=== PATIENT | female | born 1990 | race Caucasian/White ===

== ENCOUNTER 2016-10-31 18:08 | Emergency (ER) | payer MEDICARE, OTHER ==
[~2016-10-31] VITALS: Ht 160 cm; Wt 57.6 kg
[~2016-10-31 18:08] MED LIST: AMOX1TAB26; BIRTH CONTROL; CYCL10TA50; HYDR-3240; HYDR-3240 PO; MELO-190 PO; NORG1TAB29 PO; OFLO5DRO4 OT; OXYC-302 PO; TIZA4CAP PO
[2016-10-31 18:55] LABS: HEMATOCRIT 39.6 % (34.6-47.8); HEMOGLOBIN 13.2 g/dL (11.7-16.4); WHITE BLOOD COUNT 6.8 x10^3/uL (3.4-10)
[2016-10-31] MEDS ORDERED: MORPHINE SULFATE 4 MG/ML, 1ML ONE ×2 (18:55→20:02)
[2016-10-31] MEDS ORDERED: ONDANSETRON 2MG/ML, 2ML ONE (18:55)
[2016-10-31] MEDS ORDERED: DIAZEPAM 5 MG/ML, 2ML ONE (18:55)
[2016-10-31] MEDS: MORPHINE SULFATE 4 MG/ML, 1ML IVPush PRN ×2 (18:59→20:06)
[2016-10-31] MEDS ORDERED: SODIUM CHLORIDE FLUSH 10ML SYR IVF ONE (19:00)
[2016-10-31] MEDS ORDERED: ONDANSETRON 2MG/ML, 2ML IVPush ONE ×2 (19:00→20:00)
[2016-10-31] MEDS ORDERED: DIAZEPAM 5 MG/ML, 2ML IV ONE (19:00)
[2016-10-31 19:04] LABS: ASPARTATE AMINO TRANSFERASE 13 U/L (15-37); BLOOD UREA NITROGEN 5 mg/dL (7-18)
[2016-10-31] MEDS ORDERED: MORPHINE SULFATE 4 MG/ML, 1ML IVPush PRN (20:00)
[2016-10-31 21:47] VITALS: BP 116/66
== END 2016-10-31 21:51 | disposition home or self-care (01) ==
LOC: ED 19:12
DX: S16.1XXA Strain of muscle, fascia and tendon at neck level, initial encounter (principal); M47.892 Other spondylosis, cervical region; X58.XXXA Exposure to other specified factors, initial encounter; Y93.89 Activity, other specified; Y92.89 Other specified places as the place of occurrence of the external cause; Y99.9 Unspecified external cause status
CPT/HCPCS: 36415; 70450; 72125; 80053; 84703; 85025; 93005; 96374; 96375; 96376; 99285; J2405; J3360

== ENCOUNTER 2017-02-06 09:52 | Emergency (ER) | payer MEDICARE ==
[~2017-02-06] VITALS: Ht 162.6 cm; Wt 60.2 kg
[~2017-02-06 09:52] MED LIST changes: -MELO-190 PO; +MELO7.5T31 PO
[2017-02-06] MEDS ORDERED: METOCLOPRAMIDE 5 MG/ML, 2ML IVPush ONE (10:30)
[2017-02-06] MEDS ORDERED: SODIUM CHLORIDE FLUSH 10ML SYR IVF ONE (10:30)
[2017-02-06] MEDS ORDERED: DIPHENHYDRAMINE 50 MG/ML, 1ML IVPush ONE (10:30)
[2017-02-06] MEDS ORDERED: SODIUM CHLORIDE 0.9% 1,000ML IVBOLUS ONE (10:30)
[2017-02-06] MEDS ORDERED: METOCLOPRAMIDE 5 MG/ML, 2ML ONE (10:48)
[2017-02-06] MEDS ORDERED: DIPHENHYDRAMINE 50 MG/ML, 1ML ONE (10:48)
[2017-02-06] MEDS ORDERED: PROMETHAZINE 25 MG/ML, 1ML ONE (10:54)
[2017-02-06] MEDS ORDERED: PROMETHAZINE 25 MG/ML, 1ML IM ONE (11:00)
[2017-02-06 11:24] VITALS: BP 122/87
== END 2017-02-06 11:26 | disposition home or self-care (01) ==
LOC: ED 11:20
DX: O9A.211 Injury, poisoning and certain other consequences of external causes complicating pregnancy, first trimester (principal); S00.03XA Contusion of scalp, initial encounter; O99.351 Diseases of the nervous system complicating pregnancy, first trimester; G44.309 Post-traumatic headache, unspecified, not intractable; Z3A.09 9 weeks gestation of pregnancy; Z90.49 Acquired absence of other specified parts of digestive tract
CPT/HCPCS: 70450; 99284

== ENCOUNTER 2017-05-11 19:46 | Emergency (ER) | payer MEDICARE ==
[~2017-05-11] VITALS: Ht 160 cm; Wt 62.1 kg
[2017-05-11 19:47] VITALS: BP 115/73
[2017-05-11 20:26] LABS: RAPID INFLUENZA A Negative (Negative); RAPID INFLUENZA B Negative (Negative)
== END 2017-05-11 21:50 | disposition home or self-care (01) ==
LOC: ED 21:07
DX: R05 Cough (principal); J45.909 Unspecified asthma, uncomplicated
CPT/HCPCS: 71046; 87400; 99285

== ENCOUNTER 2018-05-31 18:09 | Emergency (ER) | payer BC, MEDICARE ==
[~2018-05-31] VITALS: Ht 157.5 cm; Wt 57.0 kg
[2018-05-31] MEDS ORDERED: PROMETHAZINE 25 MG/ML, 1ML IM ONE (18:30)
[2018-05-31] MEDS ORDERED: PROMETHAZINE 25 MG/ML, 1ML ONE (18:34)
[2018-05-31 18:52] LABS: BASOPHILS # (AUTO) 0.04 x10^3/uL (0-0.1); BASOPHILS % (AUTO) 1 % (0-1); EOSINOPHILS # (AUTO) 0.07 x10^3/uL (0-0.4); EOSINOPHILS % (AUTO) 1 % (1-7); LYMPHOCYTES # (AUTO) 1.82 x10^3/uL (1-3.4); LYMPHOCYTES % (AUTO) 27 % (22-44); MD NO; MEAN CORPUSCULAR HEMOGLOBIN 30.8 pg (27.0-34.8); MEAN CORPUSCULAR HGB CONC 33.9 g/dL (32.4-35.8); MEAN CORPUSCULAR VOLUME 90.6 fL (80-100); MEAN PLATELET VOLUME 11.6 fL (7.4-10.4); MONOCYTES % (AUTO) 9 % (2-9); NEUTROPHILS # (AUTO) 4.17 x10^3/uL (1.8-6.8); NEUTROPHILS % (AUTO) 62 % (42-75); PLATELET COUNT 229 x10^3/uL (130-400); RED BLOOD COUNT 4.58 x10^6/uL (3.82-5.3); RED CELL DISTRIBUTION WIDTH 12.7 % (9.6-15.2)
[2018-05-31] MEDS ORDERED: PROCHLORPERAZINE 5 MG/ML, 2ML ONE (18:58)
[2018-05-31] MEDS ORDERED: DIPHENHYDRAMINE 50 MG/ML, 1ML ONE (18:58)
[2018-05-31] MEDS ORDERED: KETOROLAC 30 MG/1 ML ONE (18:59)
[2018-05-31] MEDS ORDERED: PROCHLORPERAZINE 5 MG/ML, 2ML IVPush ONE (19:00)
[2018-05-31] MEDS ORDERED: KETOROLAC 30 MG/1 ML IVPush ONE (19:00)
[2018-05-31] MEDS ORDERED: DIPHENHYDRAMINE 50 MG/ML, 1ML IVPush ONE (19:00)
[2018-05-31 19:01] LABS: ALBUMIN 3.9 g/dL (3.4-5.0); ANION GAP 7 mmol/L (5-15); CALCIUM 8.7 mg/dL (8.5-10.1); CHLORIDE 106 mmol/L (98-107)
[2018-05-31 19:04] LABS: TROPONIN I < 0.015 ng/mL (0.000-0.045)
--- NOTE | 2018-05-31 19:07 | NUR ---
PIV started, pt medicated per MAR.
--- NOTE | 2018-05-31 19:57 | NUR ---
Pt OOB ambulated to bathroom, no assistance required. Pt states headache has improved after medications.
[2018-05-31 20:17] VITALS: BP 133/82
== END 2018-05-31 20:20 | disposition home or self-care (01) ==
LOC: ED 18:24
DX: G44.219 Episodic tension-type headache, not intractable (principal); R11.2 Nausea with vomiting, unspecified; G93.5 Compression of brain
CPT/HCPCS: 36415; 80048; 82040; 84484; 85025; 93005; 96374; 96375; 99284; J0780; J1200; J1885

== ENCOUNTER → 2020-08-13 | Outpatient (CLI) | payer OTHER, MEDICARE ==
[~2020-08-13] MED LIST changes: +ALBU8.5H8 INH; +ALPR0.5T7 PO; +DIVA500T17 PO; +EPI-PEN; +HYDR-2214; +HYDR-2214 PO; -HYDR-3240; -HYDR-3240 PO; +MELO15TA24 PO; +ONDA4TAB7 PO; -OXYC-302 PO; +OXYC-380 PO; +OXYC1TAB14 PO; +PREG200C PO
[2020-08-13 11:10] LABS: BASOPHILS % (AUTO) 1 % (0-1); EOSINOPHILS % (AUTO) 4 % (1-7); LYMPHOCYTES % (AUTO) 29 % (22-44); MEAN CORPUSCULAR HGB CONC 32.2 g/dL (32.4-35.8); MEAN PLATELET VOLUME 11.5 fL (7.4-10.4); MONOCYTES % (AUTO) 8 % (2-9); NEUTROPHILS % (AUTO) 59 % (42-75); PLATELET COUNT 278 x10^3/uL (130-400); RED BLOOD COUNT 4.46 x10^6/uL (3.82-5.3); RED CELL DISTRIBUTION WIDTH 14.7 % (9.6-15.2)
[2020-08-13 11:21] LABS: INTERNATIONAL NORMALIZED RATIO 1.06 (0.93-1.1); PROTHROMBIN TIME 11.3 Seconds (9.6-11.5)
[2020-08-13 11:22] LABS: ALANINE AMINOTRANSFERASE 18 U/L (12-78); ANION GAP 5 mmol/L (5-15); CALCIUM 8.8 mg/dL (8.5-10.1); CHLORIDE 107 mmol/L (98-107); CREATININE 0.62 mg/dL (0.55-1.02)
[2020-08-13 11:26] LABS: ALKALINE PHOSPHATASE 34 U/L (45-117); BILIRUBIN,TOTAL 0.3 mg/dL (0.2-1.0); TOTAL PROTEIN 8.5 g/dL (6.4-8.2)
[2020-08-13 11:28] LABS: MICROSCOPIC AUTO
[2020-08-13 11:37] LABS: MD SCAN
== END | disposition home or self-care (01) ==
LOC: STAR 09:48
PROVIDERS: ATTEND Neurological Surgery
DX: Z01.810 Encounter for preprocedural cardiovascular examination (principal); Z01.811 Encounter for preprocedural respiratory examination; Z01.812 Encounter for preprocedural laboratory examination; R82.90 Unspecified abnormal findings in urine; R79.1 Abnormal coagulation profile; R94.31 Abnormal electrocardiogram [ECG] [EKG]; M47.892 Other spondylosis, cervical region; M50.122 Cervical disc disorder at C5-C6 level with radiculopathy; I25.89 Other forms of chronic ischemic heart disease
CPT/HCPCS: 36415; 71046; 80053; 81001; 84703; 85025; 85610; 85730; 87086; 87147; 93005

== ENCOUNTER 2020-08-23 05:44 | Observation (INO) | payer OTHER, MEDICARE ==
[~2020-08-23] VITALS: Ht 160 cm; Wt 56.0 kg
[2020-08-23] MEDS ORDERED: LACTATED RINGERS 1,000 ML IV SCH (06:00)
[2020-08-23] MEDS ORDERED: CHLORHEXIDINE 15 ML UDC PO ONE (06:00)
[2020-08-23] MEDS ORDERED: CHLORHEXIDINE 15 ML UDC ONE (06:08)
[2020-08-23 06:16] LABS: HCG UR SG 1.019 (1.003-1.030)
[2020-08-23] MEDS ORDERED: BUPIVACAINE/PF 0.5% ONE (06:35)
[2020-08-23] MEDS ORDERED: EPINEPHRINE 1 MG/ML, 1ML ONE (06:36)
[2020-08-23] MEDS ORDERED: BACITRACIN 50,000 UNIT ONE (06:36)
[2020-08-23] MEDS ORDERED: MIDAZOLAM 1 MG/ML, 2ML ONE (06:57)
[2020-08-23] MEDS ORDERED: REMIFENTANIL 2 MG ONE (06:58)
[2020-08-23] MEDS ORDERED: PROPOFOL 150 ML ONE (07:07)
[2020-08-23] MEDS ORDERED: LIDOCAINE 1%, 20ML ONE (07:11)
[2020-08-23] MEDS ORDERED: MEPERIDINE/PF 25MG/0.5ML IVPush PRN (08:30)
[2020-08-23] MEDS ORDERED: HYDROmorphone 1 MG/ML, 1ML INJ IVPush PRN (08:30)
[2020-08-23] MEDS ORDERED: OXYcodone 5 MG/5 ML ORAL.SOL UDC PO PRN (08:30)
[2020-08-23] MEDS ORDERED: LORazepam 2 MG/ML, 1ML IVPush PRN (08:30)
[2020-08-23] MEDS ORDERED: ACETAMINOPHEN 325 MG TABLET PO PRN (08:30)
[2020-08-23] MEDS ORDERED: ONDANSETRON 2MG/ML, 2ML IVPush PRN (08:30)
[2020-08-23] MEDS ORDERED: METHOCARBAMOL 1,000 MG in DEXTROSE 5% 100 ML IV PRN (08:30)
[2020-08-23] MEDS ORDERED: PROMETHAZINE 25 MG/ML, 1ML IVPush PRN (08:30)
[2020-08-23] MEDS ORDERED: FENTANYL PF 100 MCG/2ML ONE ×2 (09:19→09:54)
[2020-08-23] MEDS ORDERED: ONDANSETRON 2MG/ML, 2ML ONE (09:45)
[2020-08-23] MEDS ORDERED: DEXAMETHASONE 4 MG/ML, 1ML ONE (09:45)
[2020-08-23] MEDS ORDERED: CEFAZOLIN 1,000 MG ONE (09:45)
[2020-08-23] MEDS ORDERED: ROCURONIUM 10MG/ML,5ML ONE (09:45)
[2020-08-23] MEDS ORDERED: SUCCINYLCHOLINE 20 MG/ML, 10ML ONE (09:45)
[2020-08-23] MEDS ORDERED: GLYCOPYRROLATE 0.2MG/1ML, 5ML ONE (09:45)
[2020-08-23] MEDS ORDERED: PROPOFOL 10 MG/ML, 20ML ONE (09:45)
[2020-08-23] MEDS ORDERED: NEOSTIGMINE 1 MG/ML, 10ML ONE (09:45)
[2020-08-23] MEDS: FENTANYL PF 100 MCG/2ML IV PRN ×4 (09:57→11:12)
[2020-08-23] MEDS ORDERED: ACETAMINOPHEN 650 MG/20.3 ML UDC ONE (10:58)
[2020-08-23] MEDS ORDERED: OXYcodone 5 MG/5 ML ORAL.SOL UDC ONE (10:59)
[2020-08-23 11:50] VITALS: BP 105/72
[2020-08-23] MEDS ORDERED: HYDROmorphone 2MG TABLET PO PRN (12:30)
[2020-08-23] MEDS ORDERED: CYCLOBENZAPRINE 10 MG TABLET PO PRN (12:30)
[2020-08-23] MEDS ORDERED: HYDROmorphone 2 MG/ML, 1ML IM PRN (12:30)
[2020-08-23] MEDS ORDERED: LABETALOL 5MG/ML, 20ML IV PRN (12:30)
[2020-08-23] MEDS ORDERED: DIPHENHYDRAMINE 25 MG CAPSULE PO PRN (12:30)
[2020-08-23] MEDS ORDERED: HYDROcodone/APAP 5/325 TABLET PO PRN (12:30)
[2020-08-23] MEDS ORDERED: DIPHENHYDRAMINE 50 MG/ML, 1ML IVPush PRN (12:30)
[2020-08-23] MEDS ORDERED: MAGNESIUM HYDROXIDE 8%, 30ML UDC PO PRN (12:30)
[2020-08-23] MEDS ORDERED: DIPHENHYDRAMINE 50 MG/ML, 1ML IM PRN (12:30)
[2020-08-23] MEDS ORDERED: BISACODYL 10 MG SUPP PR PRN (12:30)
[2020-08-23] MEDS ORDERED: PROMETHAZINE 25 MG/ML, 1ML IM PRN (12:30)
[2020-08-23 14:00] VITALS: BP 110/66
[2020-08-23] MEDS: ONDANSETRON 2MG/ML, 2ML IV PRN ×2 (14:06→21:19)
[2020-08-23] MEDS ORDERED: ONDANSETRON 4 MG TABLET PO PRN (16:00)
[2020-08-23] MEDS ORDERED: ALBUTEROL HFA 90 MCG/SPRAY INH PRN (16:00)
[2020-08-23] MEDS: CEFAZOLIN PMX 1GM/50ML 50 ML IVPB SCH (16:17)
[2020-08-23] MEDS: D5%-0.9% NACL+KCL 20MEQ 1,000 ML IV SCH (16:17)
[2020-08-23] MEDS: TIZANIDINE 4MG TABLET PO SCH ×2 (16:23→21:19)
[2020-08-23] MEDS: OXYcodone/APAP 10/325MG TABLET PO SCH ×2 (16:23→21:19)
[2020-08-23] MEDS ORDERED: CEFAZOLIN PMX 1GM/50ML 50 ML IVPB SCH (17:30)
[2020-08-23 19:54] VITALS: BP 100/62
[2020-08-23] MEDS: PREGABALIN 200 MG CAPSULE PO SCH (21:19)
[2020-08-23 23:33] VITALS: BP 108/68
[2020-08-24] MEDS: CEFAZOLIN PMX 1GM/50ML 50 ML IVPB SCH
[2020-08-24] MEDS: OXYcodone IR 5MG TABLET PO PRN ×2 (01:20→08:01)
[2020-08-24 03:10] VITALS: BP 110/72
[2020-08-24] MEDS: D5%-0.9% NACL+KCL 20MEQ 1,000 ML IV SCH (03:28)
[2020-08-24] MEDS: OXYcodone/APAP 10/325MG TABLET PO SCH (05:50)
[2020-08-24 07:30] VITALS: BP 103/68
[2020-08-24] MEDS: PREGABALIN 200 MG CAPSULE PO SCH (08:01)
[2020-08-24] MEDS: TIZANIDINE 4MG TABLET PO SCH (08:01)
[2020-08-24] MEDS ORDERED: SENNA/DOCUSATE TABLET PO SCH (09:00)
[2020-08-24] MEDS ORDERED: DIVALPROEX 500 MG TAB.ER.24H PO SCH (09:00)
[2020-08-24] MEDS ORDERED: CYCL10TA2 PO (09:25)
[2020-08-24] MEDS ORDERED: OXYC1TAB14 PO (09:26)
[2020-08-24] MEDS ORDERED: ENOXAPARIN 40 MG/0.4 ML SQ SCH (09:30)
[2020-09-16] MEDS ORDERED: AMOX1TAB12 PO ×2 (08:41)
== END 2020-08-24 10:10 | disposition home or self-care (01) ==
LOC: OUT 05:44 → EDSTATUS 07:00 → 4NE 11:45 → OUT 23:06 → DCLOUNGE 08-24 10:02
PROVIDERS: ADMIT Neurological Surgery; ATTEND Neurological Surgery
DX: Q87.2 Congenital malformation syndromes predominantly involving limbs (principal); Z20.822 Contact with and (suspected) exposure to COVID-19; M48.02 Spinal stenosis, cervical region; M47.22 Other spondylosis with radiculopathy, cervical region; M47.12 Other spondylosis with myelopathy, cervical region; G96.00 Cerebrospinal fluid leak, unspecified; E11.9 Type 2 diabetes mellitus without complications; J45.909 Unspecified asthma, uncomplicated; G43.909 Migraine, unspecified, not intractable, without status migrainosus; F12.90 Cannabis use, unspecified, uncomplicated; I10 Essential (primary) hypertension; F32.9 Major depressive disorder, single episode, unspecified; Z79.899 Other long term (current) drug therapy; Z91.040 Latex allergy status
CPT/HCPCS: 20931; 20938; 22551; 22854; 36415; 63081; 72040; 81025; 86850; 86900; 95938; 95941; 96361; 96365; 96366; 96372; 96375; 96376; 97161; 97165; C1713; C1762; C1889; G0378; J0171; J0330; J0690; J1100; J1170; J2250; J2405; J2704; J2710; J3010; J3480; J3490; J7120; Q0162; S0020; U0003; U0005

== ENCOUNTER 2020-08-27 17:44 | Emergency (ER) | payer OTHER, MEDICARE ==
[~2020-08-27] VITALS: Ht 160 cm; Wt 51.9 kg
[~2020-08-27 17:44] MED LIST changes: +CYCL10TA2 PO
[2020-08-27 18:16] LABS: BASOPHILS % (AUTO) 1 % (0-1); EOSINOPHILS % (AUTO) 6 % (1-7); LYMPHOCYTES % (AUTO) 33 % (22-44); MEAN CORPUSCULAR HEMOGLOBIN 27.2 pg (27.0-34.8); MEAN CORPUSCULAR HGB CONC 32.8 g/dL (32.4-35.8); MEAN PLATELET VOLUME 10.6 fL (7.4-10.4); MONOCYTES % (AUTO) 13 % (2-9); NEUTROPHILS % (AUTO) 47 % (42-75); PLATELET COUNT 248 x10^3/uL (130-400); RED BLOOD COUNT 4.09 x10^6/uL (3.82-5.3)
[2020-08-27 18:29] LABS: ALBUMIN 3.3 g/dL (3.4-5.0); ANION GAP 6 mmol/L (5-15); CHLORIDE 99 mmol/L (98-107)
[2020-08-27 18:32] LABS: ALANINE AMINOTRANSFERASE 12 U/L (12-78); ALKALINE PHOSPHATASE 42 U/L (45-117); BILIRUBIN,TOTAL 0.2 mg/dL (0.2-1.0); TOTAL PROTEIN 8.3 g/dL (6.4-8.2)
[2020-08-27] MEDS ORDERED: GADOTERATE 7.5 MMOL/15ML SYR ONE (18:51)
[2020-08-27] MEDS ORDERED: HYDROmorphone 1 MG/ML, 1ML INJ IM ONE ×2 (21:00→23:00)
[2020-08-27] MEDS ORDERED: ONDANSETRON ODT 4 MG PO ONE (21:00)
--- NOTE | 2020-08-27 21:06 | NUR ---
pt had cervical spinal fusion and now is having difficulty swallowing and bilateral finger tingling
[2020-08-27] MEDS ORDERED: HYDROmorphone 1 MG/ML, 1ML INJ ONE ×2 (21:24→22:57)
[2020-08-27] MEDS ORDERED: ONDANSETRON ODT 4 MG ONE (21:24)
[2020-08-27] MEDS ORDERED: methylPREDNISolone*ACETATE* 80 MG/ML IM ONE (21:30)
[2020-08-27 22:58] VITALS: BP 117/59
== END 2020-08-27 23:07 | disposition home or self-care (01) ==
LOC: ED 22:30
DX: M54.2 Cervicalgia (principal); T81.9XXA Unspecified complication of procedure, initial encounter; G89.29 Other chronic pain; R22.1 Localized swelling, mass and lump, neck; Z90.89 Acquired absence of other organs
CPT/HCPCS: 36415; 72156; 80053; 85025; 96372; 99285; A9575; J1040; J1170; Q0162; 99284

== ENCOUNTER 2020-09-13 09:35 | Inpatient (IN) | payer OTHER, MEDICARE ==
[~2020-09-13] VITALS: Ht 160 cm; Wt 57.0 kg
--- NOTE | 2020-09-13 10:04 | NUR ---
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
--- NOTE | 2020-09-13 10:59 | NUR ---
PT IN XRAY
--- NOTE | 2020-09-13 10:59 | NUR ---
PT BACK FROM XRAY
[2020-09-13] MEDS ORDERED: HYDROcodone/APAP 5/325 TABLET PO ONE (11:00)
[2020-09-13] MEDS ORDERED: KETOROLAC 30 MG/1 ML IM ONE (11:00)
--- NOTE | 2020-09-13 11:03 | NUR ---
PT STATES STARTED YESTERDAY EVENING WITH COUGHING UP GREEN AND RED SPUTUM THEN PAIN CAME ON LEFT RIBS/CHEST/NECK WITH NAUSEA AND DRY HEAVING THIS ALL WENT ON UNTIL 3AM. PT WENT TO WORK AND THEY TOLD HER TO GO HOME.
[2020-09-13] MEDS ORDERED: KETOROLAC 60 MG/2 ML ONE (11:11)
[2020-09-13] MEDS ORDERED: HYDROcodone/APAP 5/325 TABLET ONE (11:12)
[2020-09-13] MEDS ORDERED: SODIUM CHLORIDE FLUSH 10ML SYR IVF ONE (11:30)
[2020-09-13] MEDS ORDERED: CEFTRIAXONE 1,000 MG in DEXTROSE 5% 50 ML IVPB ONE ×2 (11:30→14:41)
[2020-09-13] MEDS ORDERED: DOXYCYCLINE 100MG TABLET PO ONE ×2 (11:30→21:00)
[2020-09-13] MEDS ORDERED: SODIUM CHLORIDE 0.9% 1,000ML IVBOLUS ONE (11:30)
[2020-09-13] MEDS ORDERED: DOXYCYCLINE 100MG TABLET ONE (11:59)
[2020-09-13 12:02] LABS: ALANINE AMINOTRANSFERASE 26 U/L (12-78); ANION GAP 10 mmol/L (5-15); CALCIUM 8.7 mg/dL (8.5-10.1); CHLORIDE 97 mmol/L (98-107)
[2020-09-13 12:05] LABS: ALKALINE PHOSPHATASE 55 U/L (45-117); BILIRUBIN,TOTAL 0.5 mg/dL (0.2-1.0); TOTAL PROTEIN 7.9 g/dL (6.4-8.2)
--- NOTE | 2020-09-13 12:12 | NUR ---
PT STATES PAIN MEDICATION DID DO A WHOLE LOT.
[2020-09-13 12:15] LABS: MEAN CORPUSCULAR HEMOGLOBIN 25.9 pg (27.0-34.8); MEAN CORPUSCULAR HGB CONC 32.6 g/dL (32.4-35.8); MEAN PLATELET VOLUME 10.7 fL (7.4-10.4); PLATELET COUNT 313 x10^3/uL (130-400); RED BLOOD COUNT 4.09 x10^6/uL (3.82-5.3); RED CELL DISTRIBUTION WIDTH 14.4 % (9.6-15.2)
[2020-09-13 12:41] LABS: BAND#(MANUAL) 4.24 x10^3/uL; BANDS%(MANUAL) 14 % (0-7); LYMPHS% (MANUAL) 1 % (22-44); MONOS#(MANUAL) 1.21 x10^3/uL (0.3-2.7); MONOS% (MANUAL) 4 % (2-9); PMNS WITH VACUOLES 1+; SEG#(MANUAL) 24.54 x10^3/uL (1.8-6.8); SEGS% (MANUAL) 81 % (42-75)
[2020-09-13 12:42] LABS: <PLATELET ESTIMATE> ADEQUATE; LARGE PLATELETS 1+; OVALOCYTES 1+
[2020-09-13] MEDS ORDERED: POTASSIUM CHLORIDE 20 MEQ TAB.ER.PRT PO ONE (13:00)
[2020-09-13] MEDS ORDERED: ONDANSETRON 2MG/ML, 2ML IVPush PRN (13:30)
[2020-09-13] MEDS ORDERED: ENALAPRILAT 1.25 MG/ML, 2ML IVPush PRN (13:30)
[2020-09-13] MEDS: LACTATED RINGERS 1,000 ML IV SCH ×2 (13:30→23:30)
[2020-09-13] MEDS ORDERED: ACETAMINOPHEN 325 MG TABLET PO PRN (13:30)
--- NOTE | 2020-09-13 13:42 | NUR ---
REPORT TO NICKOLAS RICH. TO BE TRANSPORTED TO FLOOR
[2020-09-13] MEDS: morphine SULFATE 10 MG/ML, 1ML IVPush PRN ×2 (15:04→17:59)
[2020-09-13] MEDS: ENOXAPARIN 40 MG/0.4 ML SQ SCH (15:07)
[2020-09-13] MEDS: GUAIFENESIN/DM 100-10MG, 5ML UDC PO SCH ×2 (15:40→20:35)
[2020-09-13] MEDS: HYDROcodone/APAP 5/325 TABLET PO PRN ×2 (15:41→20:46)
[2020-09-13 15:43] LABS: MEAN CORPUSCULAR HEMOGLOBIN 26.1 pg (27.0-34.8); MEAN CORPUSCULAR HGB CONC 32.5 g/dL (32.4-35.8); MEAN PLATELET VOLUME 10.9 fL (7.4-10.4); PLATELET COUNT 281 x10^3/uL (130-400); RED BLOOD COUNT 3.74 x10^6/uL (3.82-5.3); RED CELL DISTRIBUTION WIDTH 14.5 % (9.6-15.2)
[2020-09-13 16:18] LABS: BAND#(MANUAL) 3.48 x10^3/uL; BANDS%(MANUAL) 13 % (0-7); BASOS#(MANUAL) 0.27 x10^3/uL (0-0.1); BASOS% (MANUAL) 1 % (0-1); LYMPH#(MANUAL) 0.54 x10^3/uL (1-3.4); LYMPHS% (MANUAL) 2 % (22-44); MONOS#(MANUAL) 1.07 x10^3/uL (0.3-2.7); MONOS% (MANUAL) 4 % (2-9); SEG#(MANUAL) 21.44 x10^3/uL (1.8-6.8); SEGS% (MANUAL) 80 % (42-75)
[2020-09-13 16:19] LABS: OVALOCYTES 1+
[2020-09-13 16:20] LABS: <PLATELET ESTIMATE> ADEQUATE; LARGE PLATELETS 1+; PMNS WITH VACUOLES 1+
[2020-09-13] MEDS ORDERED: TIZA4TAB2 PO (17:34)
[2020-09-13] MEDS ORDERED: MAGNESIUM SULFATE PMX 2GM/50ML 50 ML IV ONE (18:30)
[2020-09-13 18:35] VITALS: BP 93/60
[2020-09-13 20:22] VITALS: BP 98/56
[2020-09-13 20:46] VITALS: BP 93/60
[2020-09-14 00:19] VITALS: BP 91/63
[2020-09-14] MEDS: GUAIFENESIN/DM 100-10MG, 5ML UDC PO SCH ×4 (01:07→20:17)
[2020-09-14 05:22] LABS: MEAN CORPUSCULAR HEMOGLOBIN 26.6 pg (27.0-34.8); MEAN CORPUSCULAR HGB CONC 32.7 g/dL (32.4-35.8); MEAN PLATELET VOLUME 11.4 fL (7.4-10.4); PLATELET COUNT 272 x10^3/uL (130-400); RED BLOOD COUNT 3.82 x10^6/uL (3.82-5.3); RED CELL DISTRIBUTION WIDTH 14.4 % (9.6-15.2)
[2020-09-14 05:30] LABS: CHLORIDE 102 mmol/L (98-107)
[2020-09-14 05:38] LABS: ALANINE AMINOTRANSFERASE 19 U/L (12-78); ALBUMIN 2.7 g/dL (3.4-5.0); ALKALINE PHOSPHATASE 60 U/L (45-117); ANION GAP 6 mmol/L (5-15); BILIRUBIN,TOTAL 0.3 mg/dL (0.2-1.0); CREATININE 0.52 mg/dL (0.55-1.02); TOTAL PROTEIN 7.4 g/dL (6.4-8.2)
[2020-09-14 05:43] LABS: RAPID INFLUENZA A Negative (Negative); RAPID INFLUENZA B Negative (Negative)
[2020-09-14 06:12] LABS: BAND#(MANUAL) 4.46 x10^3/uL; BANDS%(MANUAL) 20 % (0-7); LYMPH#(MANUAL) 0.45 x10^3/uL (1-3.4); LYMPHS% (MANUAL) 2 % (22-44); METAMYELOCYTES# (MANUAL) 0.22 x10^3/uL (0-0); METAMYELOCYTES% (MANUAL) 1 % (0-1); MONOS#(MANUAL) 0.89 x10^3/uL (0.3-2.7); MONOS% (MANUAL) 4 % (2-9); SEG#(MANUAL) 16.28 x10^3/uL (1.8-6.8); SEGS% (MANUAL) 73 % (42-75)
[2020-09-14 06:13] LABS: <PLATELET ESTIMATE> ADEQUATE; LARGE PLATELETS 1+; OVALOCYTES 1+; PMNS WITH VACUOLES 1+
[2020-09-14 06:42] VITALS: BP 110/67
[2020-09-14] MEDS ORDERED: POTASSIUM CHLORIDE 20 MEQ TAB.ER.PRT PO ONE (07:00)
[2020-09-14] MEDS: OXYcodone IR 5MG TABLET PO PRN (08:35)
[2020-09-14] MEDS: morphine SULFATE 10 MG/ML, 1ML IVPush PRN ×4 (12:33→18:28)
[2020-09-14] MEDS: LACTATED RINGERS 1,000 ML IV SCH ×2 (12:35→20:19)
[2020-09-14 13:20] VITALS: BP 101/65
[2020-09-14] MEDS ORDERED: CEFTRIAXONE 2 GM in DEXTROSE 5% 50 ML IVPB SCH (13:30)
[2020-09-14] MEDS: ENOXAPARIN 40 MG/0.4 ML SQ SCH (17:22)
[2020-09-14 19:21] VITALS: BP 115/70
[2020-09-14] MEDS: PREGABALIN 200 MG CAPSULE PO SCH (20:15)
[2020-09-14] MEDS: TIZANIDINE 4MG TABLET PO SCH (20:16)
[2020-09-15 01:43] VITALS: BP 106/67
[2020-09-15] MEDS: GUAIFENESIN/DM 100-10MG, 5ML UDC PO SCH ×4 (01:57→21:21)
[2020-09-15 02:02] VITALS: BP 102/66
[2020-09-15] MEDS: morphine SULFATE 10 MG/ML, 1ML IVPush PRN ×4 (02:20→21:20)
[2020-09-15] MEDS: LACTATED RINGERS 1,000 ML IV SCH ×2 (05:36→21:29)
[2020-09-15 06:33] VITALS: BP 106/56
[2020-09-15 07:44] LABS: MEAN CORPUSCULAR HEMOGLOBIN 26.3 pg (27.0-34.8); MEAN CORPUSCULAR HGB CONC 32.5 g/dL (32.4-35.8); MEAN PLATELET VOLUME 10.2 fL (7.4-10.4); PLATELET COUNT 293 x10^3/uL (130-400); RED BLOOD COUNT 3.82 x10^6/uL (3.82-5.3); RED CELL DISTRIBUTION WIDTH 14.7 % (9.6-15.2)
[2020-09-15 07:52] LABS: ALANINE AMINOTRANSFERASE 13 U/L (12-78); ALBUMIN 2.4 g/dL (3.4-5.0); ANION GAP 9 mmol/L (5-15); CALCIUM 8.9 mg/dL (8.5-10.1); CHLORIDE 99 mmol/L (98-107)
[2020-09-15 07:54] LABS: ALKALINE PHOSPHATASE 60 U/L (45-117); BILIRUBIN,TOTAL 0.4 mg/dL (0.2-1.0); TOTAL PROTEIN 7.1 g/dL (6.4-8.2)
[2020-09-15 08:08] LABS: <PLATELET ESTIMATE> ADEQUATE; BAND#(MANUAL) 0.37 x10^3/uL; BANDS%(MANUAL) 3 % (0-7); EOS#(MANUAL) 0.12 x10^3/uL (0.0-0.4); EOS% (MANUAL) 1 % (1-7); LYMPH#(MANUAL) 0.87 x10^3/uL (1-3.4); LYMPHS% (MANUAL) 7 % (22-44); MONOS#(MANUAL) 0.25 x10^3/uL (0.3-2.7); MONOS% (MANUAL) 2 % (2-9); OVALOCYTES 1+; PMNS WITH VACUOLES 1+; SEG#(MANUAL) 10.79 x10^3/uL (1.8-6.8); SEGS% (MANUAL) 87 % (42-75)
[2020-09-15 08:09] LABS: LARGE PLATELETS 1+
[2020-09-15] MEDS ORDERED: PIPERACILLIN/TAZO 3.375 GM in DEXTROSE 5% 50 ML IVPB SCH (08:30)
[2020-09-15] MEDS: BENZONATATE 100 MG CAPSULE PO SCH ×3 (09:36→21:25)
[2020-09-15] MEDS: PREGABALIN 200 MG CAPSULE PO SCH ×2 (09:36→21:21)
[2020-09-15] MEDS: TIZANIDINE 4MG TABLET PO SCH ×3 (09:37→21:25)
[2020-09-15] MEDS: DIVALPROEX 500 MG TAB.ER.24H PO SCH (09:37)
[2020-09-15] MEDS: LIDODERM 5% PATCH TD SCH (09:40)
[2020-09-15] MEDS ORDERED: OMNIPAQUE 350 MG/ML, 75ML BOTTLE ONE (10:05)
[2020-09-15] MEDS: ALBUTEROL SULFATE 2.5 MG/3 ML NPPB PRN ×2 (10:15→16:43)
[2020-09-15] MEDS: PIPERACILLIN/TAZO 4.5 GM in DEXTROSE 5% 100 ML IVPB SCH ×2 (12:57→18:40)
[2020-09-15] MEDS: OXYcodone IR 5MG TABLET PO PRN (14:08)
[2020-09-15] MEDS ORDERED: PIPERACILLIN/TAZO 4.5 GM in DEXTROSE 5% 50 ML IVPB SCH (14:30)
[2020-09-15 14:37] VITALS: BP 109/71
[2020-09-15] MEDS: ENOXAPARIN 40 MG/0.4 ML SQ SCH (17:22)
[2020-09-15 20:17] VITALS: BP 120/64
[2020-09-16] MEDS: PIPERACILLIN/TAZO 4.5 GM in DEXTROSE 5% 100 ML IVPB SCH ×2 (00:44→06:12)
[2020-09-16 02:19] VITALS: BP 113/75
[2020-09-16] MEDS: GUAIFENESIN/DM 100-10MG, 5ML UDC PO SCH ×2 (03:36→09:44)
[2020-09-16] MEDS: morphine SULFATE 10 MG/ML, 1ML IVPush PRN ×2 (03:44→04:27)
[2020-09-16 07:19] VITALS: BP 110/72
[2020-09-16] MEDS ORDERED: AMOX1TAB12 PO (08:41)
[2020-09-16] MEDS: DIVALPROEX 500 MG TAB.ER.24H PO SCH (09:04)
[2020-09-16] MEDS: TIZANIDINE 4MG TABLET PO SCH (09:05)
[2020-09-16] MEDS: PREGABALIN 200 MG CAPSULE PO SCH (09:05)
[2020-09-16] MEDS: BENZONATATE 100 MG CAPSULE PO SCH (09:05)
[2020-09-16] MEDS: LIDODERM 5% PATCH TD SCH (09:11)
[2020-09-16 09:28] LABS: BASOPHILS % (AUTO) 0 % (0-1); EOSINOPHILS % (AUTO) 0 % (1-7); LYMPHOCYTES % (AUTO) 3 % (22-44); MEAN CORPUSCULAR HEMOGLOBIN 26.2 pg (27.0-34.8); MEAN CORPUSCULAR HGB CONC 32.6 g/dL (32.4-35.8); MEAN PLATELET VOLUME 10.2 fL (7.4-10.4); MONOCYTES % (AUTO) 8 % (2-9); NEUTROPHILS % (AUTO) 89 % (42-75); PLATELET COUNT 340 x10^3/uL (130-400); RED BLOOD COUNT 3.74 x10^6/uL (3.82-5.3); RED CELL DISTRIBUTION WIDTH 14.5 % (9.6-15.2)
[2020-09-16 09:39] LABS: ALBUMIN 2.4 g/dL (3.4-5.0); ANION GAP 7 mmol/L (5-15); CALCIUM 9.1 mg/dL (8.5-10.1); CHLORIDE 100 mmol/L (98-107)
[2020-09-16 09:43] LABS: ALANINE AMINOTRANSFERASE 13 U/L (12-78); ALKALINE PHOSPHATASE 62 U/L (45-117); BILIRUBIN,TOTAL 0.3 mg/dL (0.2-1.0); CREATININE 0.52 mg/dL (0.55-1.02); TOTAL PROTEIN 7.5 g/dL (6.4-8.2)
== END 2020-09-16 10:45 | disposition home or self-care (01) | DRG 871 ==
LOC: ED 12:52 → EDIP 12:53 → ED 13:21 → 4WST 14:38 → DCLOUNGE 09-16 10:38
PROVIDERS: ADMIT Hospitalist; ATTEND Family Medicine
DX: A41.9 Sepsis, unspecified organism (principal); J18.9 Pneumonia, unspecified organism; E83.42 Hypomagnesemia; J45.909 Unspecified asthma, uncomplicated; M47.22 Other spondylosis with radiculopathy, cervical region; Z86.16 Personal history of COVID-19; Z98.1 Arthrodesis status; Z88.8 Allergy status to other drugs, medicaments and biological substances; Z91.040 Latex allergy status
CPT/HCPCS: 36415; 84145; 87400; 96372; 99291; J7613; 71046; 71260; 80053; 83605; 83735; 84100; 85025; 85651; 86140; 87040; 87070; 87205; 93005; 94640; G0378; J0696; J1650; J1885; J2543; Q9967; J2270; J3475; J7030; J7120

== ENCOUNTER 2020-09-17 16:51 | Inpatient (IN) | payer OTHER, MEDICARE ==
[~2020-09-17] VITALS: Ht 160 cm; Wt 60.2 kg
[~2020-09-17 16:51] MED LIST changes: +AMOX1TAB12 PO; +TIZA4TAB2 PO
--- NOTE | 2020-09-17 17:19 | NUR ---
PT TO ROOM 34 W/ C/O CP THAT HAS BEEN WORSENING, COUGH, SOB, AND CONGESTION. PT WAS SEEN AT [facility] ON SUNDAY AND WAS ADMITTED FOR PNA. DID NOT GET TESTED FOR COVID [facility] DID NOT BELIEVE SHE HAD COVID. PT WAS DISCHARGED YESTERDAY FROM [facility] AND NOW WHILE AT HOME HAS INCREASING SX. WAS SEEN BY HER PCP TODAY AND WAS TOLD TO COME BACK TO ED. PT RESTING ON GURNEY. NADN. MONITORS APPLIED. VSS. WARM BLANKET PROVIDED. CALL LIGHT IN REACH. ERP DR. RODRIGUEZ AT BEDSIDE FOR EVAL.
[2020-09-17] MEDS ORDERED: ONDANSETRON 2MG/ML, 2ML ONE (17:28)
[2020-09-17] MEDS ORDERED: MORPHINE SULFATE 4 MG/ML, 1ML ONE ×2 (17:28→18:48)
[2020-09-17 17:43] LABS: MEAN CORPUSCULAR HEMOGLOBIN 25.9 pg (27.0-34.8); MEAN CORPUSCULAR HGB CONC 32.8 g/dL (32.4-35.8); MEAN PLATELET VOLUME 9.7 fL (7.4-10.4); PLATELET COUNT 387 x10^3/uL (130-400); RED CELL DISTRIBUTION WIDTH 14.8 % (9.6-15.2)
[2020-09-17 17:53] LABS: ANION GAP 9 mmol/L (5-15); CALCIUM 8.9 mg/dL (8.5-10.1); CHLORIDE 95 mmol/L (98-107); CREATININE 0.41 mg/dL (0.55-1.02)
[2020-09-17 17:54] LABS: ALANINE AMINOTRANSFERASE 15 U/L (12-78); ALBUMIN 2.4 g/dL (3.4-5.0)
[2020-09-17 17:58] LABS: ALKALINE PHOSPHATASE 58 U/L (45-117); BILIRUBIN,TOTAL 0.4 mg/dL (0.2-1.0); TOTAL PROTEIN 7.8 g/dL (6.4-8.2); TROPONIN I < 0.015 ng/mL (0.000-0.045)
[2020-09-17] MEDS ORDERED: ONDANSETRON 2MG/ML, 2ML IVPush ONE (18:00)
[2020-09-17] MEDS ORDERED: SODIUM CHLORIDE 0.9% 1,000ML IVBOLUS ONE (18:00)
[2020-09-17] MEDS: MORPHINE SULFATE 4 MG/ML, 1ML IVPush PRN ×2 (18:02→18:50)
--- NOTE | 2020-09-17 18:15 | NUR ---
PT RESTING ON GURNEY. NADN. GODFREY.
[2020-09-17 18:20] LABS: EOS#(MANUAL) 0.13 x10^3/uL (0.0-0.4); EOS% (MANUAL) 1 % (1-7); LYMPH#(MANUAL) 1.79 x10^3/uL (1-3.4); LYMPHS% (MANUAL) 14 % (22-44); MONOS#(MANUAL) 1.28 x10^3/uL (0.3-2.7); MONOS% (MANUAL) 10 % (2-9); SEGS% (MANUAL) 75 % (42-75)
[2020-09-17 18:21] LABS: <PLATELET ESTIMATE> ADEQUATE; <PLT MORPHOLOGY> NORMAL PLT MORPH; HYPOCHROMIA 1+; OVALOCYTES 1+
[2020-09-17 18:22] LABS: SICKLE CELLS 1+
[2020-09-17] MEDS ORDERED: VANCOMYCIN PER PHARMACY MC ONE (19:00)
[2020-09-17] MEDS ORDERED: POTASSIUM CHLORIDE 20 MEQ TAB.ER.PRT PO ONE (19:00)
[2020-09-17] MEDS ORDERED: PIPERACILLIN/TAZO 3.375 GM in DEXTROSE 5% 50 ML IVPB ONE (19:00)
[2020-09-17] MEDS ORDERED: VANCOMYCIN 1,000 MG in SODIUM CHLORIDE 0.9% 100 ML IV ONE (19:00)
[2020-09-17] MEDS ORDERED: POTASSIUM CHLORIDE 20 MEQ TAB.ER.PRT ONE (19:09)
--- NOTE | 2020-09-17 19:29 | NUR ---
YELLOW SLIP SENT TO PHARMACY FOR MEDS PER MAY.
--- NOTE | 2020-09-17 19:53 | NUR ---
REPORT GIVEN TO BIOSTATISTICS MANAGER ON MED TELE FLOOR. ALL QUESTIONS ANSWERED. AWAITING PT TRANSPORT.
[2020-09-17 20:22] VITALS: BP 116/73
[2020-09-17] MEDS ORDERED: PREGABALIN 200 MG CAPSULE PO SCH (21:30)
[2020-09-17] MEDS ORDERED: VANCOMYCIN PER PHARMACY MC PRN (21:30)
[2020-09-17] MEDS: TIZANIDINE 4MG TABLET PO SCH (21:56)
[2020-09-17] MEDS: BENZONATATE 100 MG CAPSULE PO PRN (21:57)
[2020-09-17] MEDS: OXYcodone/APAP 5/325MG TABLET PO PRN (21:57)
[2020-09-17] MEDS: ENOXAPARIN 40 MG/0.4 ML SQ SCH (21:57)
[2020-09-17] MEDS ORDERED: PHARMACOKINETIC CONSULTATION MC ONE (22:00)
[2020-09-17] MEDS ORDERED: PHARMACOKINETIC MONITORING MC PRN (22:00)
[2020-09-17] MEDS ORDERED: ALBUTEROL SULFATE 2.5 MG/3 ML NPPB PRN (22:30)
[2020-09-17] MEDS: morphine SULFATE 10 MG/ML, 1ML IV PRN (23:41)
[2020-09-18 00:38] VITALS: BP 104/67
[2020-09-18] MEDS: PIPERACILLIN/TAZO 3.375 GM in DEXTROSE 5% 50 ML IV SCH ×4 (02:42→20:10)
[2020-09-18] MEDS: OXYcodone/APAP 5/325MG TABLET PO PRN ×3 (02:43→16:07)
[2020-09-18] MEDS: morphine SULFATE 10 MG/ML, 1ML IV PRN ×5 (04:06→22:56)
[2020-09-18 06:00] LABS: BASOPHILS % (AUTO) 1 % (0-1); EOSINOPHILS % (AUTO) 2 % (1-7); LYMPHOCYTES % (AUTO) 10 % (22-44); MEAN CORPUSCULAR HEMOGLOBIN 26.6 pg (27.0-34.8); MEAN CORPUSCULAR HGB CONC 33.3 g/dL (32.4-35.8); MEAN PLATELET VOLUME 9.9 fL (7.4-10.4); MONOCYTES % (AUTO) 16 % (2-9); NEUTROPHILS % (AUTO) 71 % (42-75); PLATELET COUNT 307 x10^3/uL (130-400); RED BLOOD COUNT 3.26 x10^6/uL (3.82-5.3); RED CELL DISTRIBUTION WIDTH 14.7 % (9.6-15.2)
[2020-09-18 06:09] LABS: ANION GAP 8 mmol/L (5-15); CALCIUM 8.3 mg/dL (8.5-10.1); CHLORIDE 97 mmol/L (98-107); CREATININE 0.31 mg/dL (0.55-1.02)
[2020-09-18] MEDS: TIZANIDINE 4MG TABLET PO SCH ×3 (07:40→20:10)
[2020-09-18] MEDS: DIVALPROEX 500 MG TAB.ER.24H PO SCH (07:40)
[2020-09-18] MEDS: PREGABALIN 100 MG CAPSULE PO SCH ×2 (07:40→20:10)
[2020-09-18 08:03] VITALS: BP 110/70
[2020-09-18] MEDS: VANCOMYCIN 1,000 MG in SODIUM CHLORIDE 0.9% 100 ML IV SCH ×2 (09:37→21:34)
[2020-09-18 12:38] VITALS: BP 119/68
[2020-09-18] MEDS ORDERED: OMNIPAQUE 350 MG/ML, 75ML BOTTLE ONE (17:00)
[2020-09-18 20:02] VITALS: BP 109/72
[2020-09-18] MEDS: ENOXAPARIN 40 MG/0.4 ML SQ SCH (20:10)
[2020-09-19 00:17] VITALS: BP 103/61
[2020-09-19] MEDS: PIPERACILLIN/TAZO 3.375 GM in DEXTROSE 5% 50 ML IV SCH ×4 (02:57→20:00)
[2020-09-19] MEDS: HYDROmorphone 1 MG/ML, 1ML INJ IV PRN ×2 (02:57→21:53)
[2020-09-19] MEDS: OXYcodone/APAP 5/325MG TABLET PO PRN ×4 (04:14→23:16)
[2020-09-19] MEDS: CYCLOBENZAPRINE 10 MG TABLET PO PRN (04:14)
[2020-09-19 05:31] LABS: BASOPHILS % (AUTO) 0 % (0-1); EOSINOPHILS % (AUTO) 1 % (1-7); LYMPHOCYTES % (AUTO) 8 % (22-44); MEAN CORPUSCULAR HEMOGLOBIN 26.2 pg (27.0-34.8); MEAN CORPUSCULAR HGB CONC 33.1 g/dL (32.4-35.8); MEAN PLATELET VOLUME 9.3 fL (7.4-10.4); MONOCYTES % (AUTO) 12 % (2-9); NEUTROPHILS % (AUTO) 79 % (42-75); PLATELET COUNT 403 x10^3/uL (130-400); RED BLOOD COUNT 3.54 x10^6/uL (3.82-5.3); RED CELL DISTRIBUTION WIDTH 14.7 % (9.6-15.2)
[2020-09-19 05:35] LABS: CHLORIDE 96 mmol/L (98-107)
[2020-09-19 05:45] LABS: ANION GAP 6 mmol/L (5-15); CALCIUM 8.7 mg/dL (8.5-10.1)
[2020-09-19 05:46] LABS: ALANINE AMINOTRANSFERASE 15 U/L (12-78); ALBUMIN 2.1 g/dL (3.4-5.0); ALKALINE PHOSPHATASE 67 U/L (45-117); BILIRUBIN,TOTAL 0.3 mg/dL (0.2-1.0); TOTAL PROTEIN 7.2 g/dL (6.4-8.2)
[2020-09-19] MEDS: DIVALPROEX 500 MG TAB.ER.24H PO SCH (07:56)
[2020-09-19] MEDS: PREGABALIN 100 MG CAPSULE PO SCH ×2 (07:56→21:53)
[2020-09-19] MEDS: TIZANIDINE 4MG TABLET PO SCH ×3 (07:56→21:53)
[2020-09-19] MEDS: morphine SULFATE 10 MG/ML, 1ML IV PRN ×2 (07:58→11:13)
[2020-09-19 08:16] VITALS: BP 98/67
[2020-09-19] MEDS: VANCOMYCIN 1,000 MG in SODIUM CHLORIDE 0.9% 100 ML IV SCH ×3 (11:14→19:49)
[2020-09-19 13:09] VITALS: BP 100/66
[2020-09-19] MEDS ORDERED: LIDOCAINE 1%, 20ML ONE (13:46)
[2020-09-19] MEDS ORDERED: MIDAZOLAM 1 MG/ML, 5ML ONE ×2 (14:06→15:05)
[2020-09-19] MEDS ORDERED: FENTANYL PF 100 MCG/2ML ONE ×2 (14:06→15:04)
[2020-09-19] MEDS ORDERED: NALOXONE 1 MG/ML, 2ML ONE (14:07)
[2020-09-19] MEDS ORDERED: FLUMAZENIL 0.1 MG/1 ML, 5ML ONE (14:07)
[2020-09-19] MEDS ORDERED: POTASSIUM CHLORIDE 20 MEQ TAB.ER.PRT PO ONE (15:30)
[2020-09-19 19:50] VITALS: BP 110/66
[2020-09-19] MEDS: ENOXAPARIN 40 MG/0.4 ML SQ SCH (21:53)
[2020-09-20] MEDS: HYDROmorphone 2MG TABLET PO PRN ×2 (00:29→06:36)
[2020-09-20 01:24] VITALS: BP 116/72
[2020-09-20] MEDS: PIPERACILLIN/TAZO 3.375 GM in DEXTROSE 5% 50 ML IV SCH ×3 (02:00→17:15)
[2020-09-20] MEDS: VANCOMYCIN 1,000 MG in SODIUM CHLORIDE 0.9% 100 ML IV SCH ×3 (02:50→21:55)
[2020-09-20] MEDS: OXYcodone/APAP 5/325MG TABLET PO PRN ×3 (03:05→12:24)
[2020-09-20] MEDS: CYCLOBENZAPRINE 10 MG TABLET PO PRN ×2 (03:58→21:13)
[2020-09-20 07:09] VITALS: BP 111/75
[2020-09-20] MEDS ORDERED: POTASSIUM CHLORIDE 20 MEQ TAB.ER.PRT PO SCH (08:00)
[2020-09-20 08:30] LABS: BASOPHILS % (AUTO) 1 % (0-1); EOSINOPHILS % (AUTO) 1 % (1-7); LYMPHOCYTES % (AUTO) 11 % (22-44); MEAN CORPUSCULAR HEMOGLOBIN 26.4 pg (27.0-34.8); MEAN CORPUSCULAR HGB CONC 32.7 g/dL (32.4-35.8); MEAN PLATELET VOLUME 9.4 fL (7.4-10.4); MONOCYTES % (AUTO) 9 % (2-9); NEUTROPHILS % (AUTO) 78 % (42-75); PLATELET COUNT 504 x10^3/uL (130-400); RED BLOOD COUNT 3.83 x10^6/uL (3.82-5.3)
[2020-09-20 08:35] LABS: ALBUMIN 2.5 g/dL (3.4-5.0); ANION GAP 9 mmol/L (5-15); CALCIUM 9.5 mg/dL (8.5-10.1); CHLORIDE 94 mmol/L (98-107)
[2020-09-20 08:39] LABS: ALANINE AMINOTRANSFERASE 18 U/L (12-78); ALKALINE PHOSPHATASE 83 U/L (45-117); BILIRUBIN,TOTAL 0.3 mg/dL (0.2-1.0); CREATININE 0.61 mg/dL (0.55-1.02); TOTAL PROTEIN 8.9 g/dL (6.4-8.2)
[2020-09-20] MEDS: TIZANIDINE 4MG TABLET PO SCH ×3 (09:19→21:09)
[2020-09-20] MEDS: PREGABALIN 100 MG CAPSULE PO SCH ×2 (09:21→21:10)
[2020-09-20] MEDS: DIVALPROEX 500 MG TAB.ER.24H PO SCH (09:22)
[2020-09-20] MEDS ORDERED: HYDROmorphone 1 MG/ML, 1ML INJ IM SCH (09:30)
[2020-09-20] MEDS: NS + 20MEQ KCL 1,000 ML IV SCH (11:20)
[2020-09-20 13:26] VITALS: BP 119/79
[2020-09-20] MEDS: HYDROmorphone 1 MG/ML, 1ML INJ IV PRN ×3 (13:36→21:07)
[2020-09-20] MEDS: BENZONATATE 100 MG CAPSULE PO PRN (15:23)
[2020-09-20] MEDS: OXYcodone/APAP 10/325MG TABLET PO PRN (19:35)
[2020-09-20 20:02] VITALS: BP 117/76
[2020-09-20] MEDS: ENOXAPARIN 40 MG/0.4 ML SQ SCH (21:10)
[2020-09-20] MEDS ORDERED: LIDODERM 5% PATCH TD ONE (21:54)
[2020-09-20] MEDS: LIDODERM 5% PATCH TD SCH (21:58)
[2020-09-21] MEDS: PIPERACILLIN/TAZO 3.375 GM in DEXTROSE 5% 50 ML IV SCH ×5 (00:19→23:02)
[2020-09-21] MEDS: CYCLOBENZAPRINE 10 MG TABLET PO PRN ×4 (00:28→20:00)
[2020-09-21] MEDS: HYDROmorphone 1 MG/ML, 1ML INJ IV PRN ×7 (00:28→23:48)
[2020-09-21] MEDS: OXYcodone/APAP 10/325MG TABLET PO PRN ×4 (01:18→18:55)
[2020-09-21] MEDS: NS + 20MEQ KCL 1,000 ML IV SCH (01:23)
[2020-09-21] MEDS: BENZONATATE 100 MG CAPSULE PO PRN ×2 (01:24→08:33)
[2020-09-21 01:57] VITALS: BP 110/72
[2020-09-21 05:47] LABS: BASOPHILS % (AUTO) 1 % (0-1); EOSINOPHILS % (AUTO) 2 % (1-7); LYMPHOCYTES % (AUTO) 9 % (22-44); MEAN CORPUSCULAR HEMOGLOBIN 26.6 pg (27.0-34.8); MEAN CORPUSCULAR HGB CONC 33.1 g/dL (32.4-35.8); MEAN PLATELET VOLUME 8.6 fL (7.4-10.4); MONOCYTES % (AUTO) 8 % (2-9); NEUTROPHILS % (AUTO) 81 % (42-75); PLATELET COUNT 433 x10^3/uL (130-400); RED CELL DISTRIBUTION WIDTH 14.6 % (9.6-15.2)
[2020-09-21 05:57] LABS: ALBUMIN 1.8 g/dL (3.4-5.0); ANION GAP 4 mmol/L (5-15); CALCIUM 8.4 mg/dL (8.5-10.1); CHLORIDE 99 mmol/L (98-107)
[2020-09-21 06:02] LABS: ALANINE AMINOTRANSFERASE 13 U/L (12-78); ALKALINE PHOSPHATASE 63 U/L (45-117); BILIRUBIN,TOTAL 0.2 mg/dL (0.2-1.0); CREATININE 0.39 mg/dL (0.55-1.02); TOTAL PROTEIN 7.1 g/dL (6.4-8.2)
[2020-09-21 06:42] VITALS: BP 112/67
[2020-09-21] MEDS: VANCOMYCIN 1,000 MG in SODIUM CHLORIDE 0.9% 100 ML IV SCH ×3 (06:48→21:54)
[2020-09-21] MEDS: DIVALPROEX 500 MG TAB.ER.24H PO SCH (08:33)
[2020-09-21] MEDS: PREGABALIN 100 MG CAPSULE PO SCH ×2 (08:33→20:46)
[2020-09-21] MEDS: TIZANIDINE 4MG TABLET PO SCH ×3 (08:33→20:46)
[2020-09-21] MEDS: SENNA/DOCUSATE TABLET PO SCH (08:34)
[2020-09-21 13:48] VITALS: BP 123/80
[2020-09-21] MEDS: POTASSIUM CHLORIDE 20 MEQ TAB.ER.PRT PO SCH (14:46)
[2020-09-21] MEDS: POLYETHYLENE GLYCOL 17 GM PACKET PO PRN (15:04)
[2020-09-21] MEDS ORDERED: SODIUM CHLORIDE 0.9% INJ ONE (16:00)
[2020-09-21] MEDS ORDERED: DORNASE ALFA INJ ONE (16:00)
[2020-09-21] MEDS ORDERED: ALTEPLASE 10 MG in SODIUM CHLORIDE 0.9% 50 ML, SYRINGE 1 EA IV ONE (16:00)
[2020-09-21] MEDS ORDERED: LORazepam 0.5MG TABLET PO ONE (16:00)
[2020-09-21] MEDS ORDERED: HYDROmorphone 1 MG/ML, 1ML INJ IV ONE (18:30)
[2020-09-21 18:56] VITALS: BP 116/77
[2020-09-21] MEDS: MONTELUKAST 10 MG TABLET PO SCH (20:46)
[2020-09-21] MEDS: ENOXAPARIN 40 MG/0.4 ML SQ SCH (20:47)
[2020-09-21] MEDS: LIDODERM 5% PATCH TD SCH (20:47)
[2020-09-21] MEDS: DEXTROMETHORPHAN 30 MG/5 ML ORAL SOL PO PRN (21:54)
[2020-09-21] MEDS ORDERED: HYDROmorphone 2 MG/ML, 1ML ONE (23:45)
[2020-09-22] MEDS: OXYcodone/APAP 10/325MG TABLET PO PRN ×6 (00:43→19:34)
[2020-09-22 01:08] VITALS: BP 128/84
[2020-09-22] MEDS: HYDROmorphone 1 MG/ML, 1ML INJ IV PRN ×5 (03:22→21:13)
[2020-09-22] MEDS: CYCLOBENZAPRINE 10 MG TABLET PO PRN ×2 (03:54→15:32)
[2020-09-22] MEDS: PIPERACILLIN/TAZO 3.375 GM in DEXTROSE 5% 50 ML IV SCH ×3 (05:32→17:28)
[2020-09-22 06:07] LABS: BASOPHILS % (AUTO) 1 % (0-1); EOSINOPHILS % (AUTO) 1 % (1-7); LYMPHOCYTES % (AUTO) 7 % (22-44); MEAN CORPUSCULAR HEMOGLOBIN 26.2 pg (27.0-34.8); MEAN CORPUSCULAR HGB CONC 32.7 g/dL (32.4-35.8); MEAN PLATELET VOLUME 8.4 fL (7.4-10.4); MONOCYTES % (AUTO) 9 % (2-9); NEUTROPHILS % (AUTO) 83 % (42-75); PLATELET COUNT 479 x10^3/uL (130-400); RED BLOOD COUNT 3.25 x10^6/uL (3.82-5.3); RED CELL DISTRIBUTION WIDTH 14.9 % (9.6-15.2)
[2020-09-22 06:11] LABS: ALBUMIN 1.8 g/dL (3.4-5.0); ANION GAP 5 mmol/L (5-15); CALCIUM 8.5 mg/dL (8.5-10.1); CHLORIDE 95 mmol/L (98-107)
[2020-09-22] MEDS: VANCOMYCIN 1,000 MG in SODIUM CHLORIDE 0.9% 100 ML IV SCH (06:11)
[2020-09-22 06:14] LABS: ALANINE AMINOTRANSFERASE 14 U/L (12-78); ALKALINE PHOSPHATASE 62 U/L (45-117); BILIRUBIN,TOTAL 0.3 mg/dL (0.2-1.0); TOTAL PROTEIN 7.3 g/dL (6.4-8.2)
[2020-09-22 08:18] VITALS: BP 113/79
[2020-09-22] MEDS: DIVALPROEX 500 MG TAB.ER.24H PO SCH (08:42)
[2020-09-22] MEDS: TIZANIDINE 4MG TABLET PO SCH ×3 (08:42→20:21)
[2020-09-22] MEDS: POTASSIUM CHLORIDE 20 MEQ TAB.ER.PRT PO SCH (08:42)
[2020-09-22] MEDS: PREGABALIN 100 MG CAPSULE PO SCH ×2 (08:42→20:21)
[2020-09-22] MEDS: SENNA/DOCUSATE TABLET PO SCH (08:42)
[2020-09-22] MEDS ORDERED: HYDROmorphone 1 MG/ML, 1ML INJ IV ONE (09:00)
[2020-09-22] MEDS: CEFTAROLINE 600 MG in SODIUM CHLORIDE 0.9% 100 ML IV SCH ×2 (10:49→23:06)
[2020-09-22 15:39] VITALS: BP 113/76
[2020-09-22] MEDS: DORNASE ALFA INJ SCH (17:15)
[2020-09-22] MEDS: SODIUM CHLORIDE 0.9% INJ SCH (17:15)
[2020-09-22] MEDS: ALTEPLASE 10 MG in SODIUM CHLORIDE 0.9% 50 ML, SYRINGE 1 EA IV SCH (17:15)
[2020-09-22 18:59] VITALS: BP 117/68
[2020-09-22] MEDS: ENOXAPARIN 40 MG/0.4 ML SQ SCH (20:20)
[2020-09-22] MEDS: MONTELUKAST 10 MG TABLET PO SCH (20:21)
[2020-09-22] MEDS: LIDODERM 5% PATCH TD SCH (20:21)
[2020-09-22] MEDS: DEXTROMETHORPHAN 30 MG/5 ML ORAL SOL PO PRN (21:14)
[2020-09-23] MEDS: PIPERACILLIN/TAZO 3.375 GM in DEXTROSE 5% 50 ML IV SCH ×4 (00:26→18:14)
[2020-09-23] MEDS: OXYcodone/APAP 10/325MG TABLET PO PRN ×3 (00:27→12:17)
[2020-09-23] MEDS: CYCLOBENZAPRINE 10 MG TABLET PO PRN ×2 (00:32→15:45)
[2020-09-23 01:12] VITALS: BP 121/84
[2020-09-23] MEDS: HYDROmorphone 1 MG/ML, 1ML INJ IV PRN ×5 (01:18→22:10)
[2020-09-23 05:16] LABS: BASOPHILS % (AUTO) 0 % (0-1); EOSINOPHILS % (AUTO) 0 % (1-7); LYMPHOCYTES % (AUTO) 5 % (22-44); MEAN CORPUSCULAR HEMOGLOBIN 25.8 pg (27.0-34.8); MEAN CORPUSCULAR HGB CONC 32.5 g/dL (32.4-35.8); MEAN PLATELET VOLUME 8.1 fL (7.4-10.4); MONOCYTES % (AUTO) 8 % (2-9); NEUTROPHILS % (AUTO) 86 % (42-75); PLATELET COUNT 415 x10^3/uL (130-400); RED BLOOD COUNT 3.07 x10^6/uL (3.82-5.3); RED CELL DISTRIBUTION WIDTH 14.5 % (9.6-15.2)
[2020-09-23 05:27] LABS: ALBUMIN 1.7 g/dL (3.4-5.0); ANION GAP 8 mmol/L (5-15); CALCIUM 8.4 mg/dL (8.5-10.1); CHLORIDE 94 mmol/L (98-107)
[2020-09-23 05:32] LABS: ALANINE AMINOTRANSFERASE 12 U/L (12-78); ALKALINE PHOSPHATASE 60 U/L (45-117); BILIRUBIN,TOTAL 0.3 mg/dL (0.2-1.0); CREATININE 1.35 mg/dL (0.55-1.02)
[2020-09-23] MEDS: BENZONATATE 100 MG CAPSULE PO PRN ×2 (06:18→20:27)
[2020-09-23 08:13] VITALS: BP 138/75
[2020-09-23] MEDS: CEFTAROLINE 600 MG in SODIUM CHLORIDE 0.9% 100 ML IV SCH ×2 (09:56→22:10)
[2020-09-23] MEDS: DIVALPROEX 500 MG TAB.ER.24H PO SCH (09:56)
[2020-09-23] MEDS: SENNA/DOCUSATE TABLET PO SCH (09:57)
[2020-09-23] MEDS: POTASSIUM CHLORIDE 20 MEQ TAB.ER.PRT PO SCH (09:57)
[2020-09-23] MEDS: PREGABALIN 100 MG CAPSULE PO SCH ×2 (09:57→20:26)
[2020-09-23] MEDS: TIZANIDINE 4MG TABLET PO SCH ×3 (09:59→20:27)
[2020-09-23] MEDS ORDERED: CATHFLO-ALTEPLASE 2 MG/2 ML CATHFLUSH ONE ×2 (10:30→13:30)
[2020-09-23] MEDS ORDERED: PHARMACY MAY ADJ FOR RENAL FX MC PRN (13:30)
[2020-09-23 13:50] VITALS: BP 104/68
[2020-09-23] MEDS ORDERED: LORazepam 2 MG/ML, 1ML IVPush ONE (15:30)
[2020-09-23] MEDS: POLYETHYLENE GLYCOL 17 GM PACKET PO PRN (15:46)
[2020-09-23 16:16] LABS: MICROSCOPIC AUTO
[2020-09-23] MEDS: DORNASE ALFA INJ SCH (17:17)
[2020-09-23] MEDS: SODIUM CHLORIDE 0.9% INJ SCH (17:17)
[2020-09-23] MEDS: ALTEPLASE 10 MG in SODIUM CHLORIDE 0.9% 50 ML, SYRINGE 1 EA IV SCH (17:20)
[2020-09-23] MEDS: ENOXAPARIN 40 MG/0.4 ML SQ SCH (19:40)
[2020-09-23 20:00] VITALS: BP 98/62
[2020-09-23] MEDS: MONTELUKAST 10 MG TABLET PO SCH (20:26)
[2020-09-23] MEDS: LIDODERM 5% PATCH TD SCH (20:27)
[2020-09-23 22:11] VITALS: BP 108/63
[2020-09-24] VITALS (10 sets, daily range): BP systolic 107–129; BP diastolic 67–86
[2020-09-24] MEDS: OXYcodone/APAP 10/325MG TABLET PO PRN ×4 (00:24→15:32)
[2020-09-24] MEDS: PIPERACILLIN/TAZO 3.375 GM in DEXTROSE 5% 50 ML IV SCH ×3 (00:24→13:36)
[2020-09-24] MEDS: HYDROmorphone 1 MG/ML, 1ML INJ IV PRN ×6 (02:20→19:30)
[2020-09-24] MEDS: CYCLOBENZAPRINE 10 MG TABLET PO PRN (05:18)
[2020-09-24 06:30] LABS: BASOPHILS % (AUTO) 0 % (0-1); EOSINOPHILS % (AUTO) 1 % (1-7); LYMPHOCYTES % (AUTO) 8 % (22-44); MEAN CORPUSCULAR HEMOGLOBIN 26.2 pg (27.0-34.8); MEAN CORPUSCULAR HGB CONC 33.4 g/dL (32.4-35.8); MEAN PLATELET VOLUME 8.3 fL (7.4-10.4); MONOCYTES % (AUTO) 12 % (2-9); NEUTROPHILS % (AUTO) 79 % (42-75); PLATELET COUNT 430 x10^3/uL (130-400); RED CELL DISTRIBUTION WIDTH 14.9 % (9.6-15.2)
[2020-09-24 06:36] LABS: ALBUMIN 1.5 g/dL (3.4-5.0); ANION GAP 6 mmol/L (5-15); CALCIUM 8.3 mg/dL (8.5-10.1); CHLORIDE 96 mmol/L (98-107)
[2020-09-24 06:39] LABS: ALANINE AMINOTRANSFERASE 11 U/L (12-78); ALKALINE PHOSPHATASE 53 U/L (45-117); BILIRUBIN,TOTAL 0.3 mg/dL (0.2-1.0); CREATININE 1.37 mg/dL (0.55-1.02); TOTAL PROTEIN 6.5 g/dL (6.4-8.2)
[2020-09-24] MEDS ORDERED: CATHFLO-ALTEPLASE 2 MG/2 ML CATHFLUSH ONE (08:00)
[2020-09-24] MEDS ORDERED: POTASSIUM CHLORIDE 20 MEQ TAB.ER.PRT PO SCH (08:00)
[2020-09-24 08:10] LABS: INTERNATIONAL NORMALIZED RATIO 1.07 (0.93-1.1); PROTHROMBIN TIME 11.4 Seconds (9.6-11.5)
[2020-09-24] MEDS: SENNA/DOCUSATE TABLET PO SCH (08:37)
[2020-09-24] MEDS: TIZANIDINE 4MG TABLET PO SCH ×3 (08:38→21:00)
[2020-09-24] MEDS: DIVALPROEX 500 MG TAB.ER.24H PO SCH (08:38)
[2020-09-24] MEDS: PREGABALIN 100 MG CAPSULE PO SCH ×2 (08:38→21:00)
[2020-09-24] MEDS: CEFTAROLINE 600 MG in SODIUM CHLORIDE 0.9% 100 ML IV SCH (11:25)
[2020-09-24] MEDS: NS + 40MEQ KCL 1,000 ML IV SCH (13:36)
[2020-09-24] MEDS ORDERED: CHLORHEXIDINE 15 ML UDC ONE (16:13)
[2020-09-24] MEDS ORDERED: CHLORHEXIDINE 15 ML UDC PO ONE (16:30)
[2020-09-24] MEDS: LACTATED RINGERS 1,000 ML IV SCH (16:42)
[2020-09-24] MEDS ORDERED: MIDAZOLAM 1 MG/ML, 2ML ONE (16:50)
[2020-09-24] MEDS ORDERED: FENTANYL PF 250 MCG/5ML ONE (16:50)
[2020-09-24] MEDS ORDERED: DEXAMETHASONE 4 MG/ML, 1ML ONE (17:08)
[2020-09-24] MEDS ORDERED: CEFAZOLIN 1,000 MG ONE (17:08)
[2020-09-24] MEDS ORDERED: ONDANSETRON 2MG/ML, 2ML ONE ×2 (17:08→19:46)
[2020-09-24] MEDS ORDERED: PROPOFOL 10 MG/ML, 20ML ONE (17:08)
[2020-09-24] MEDS ORDERED: SUCCINYLCHOLINE 20 MG/ML, 10ML ONE (17:08)
[2020-09-24] MEDS ORDERED: LIDOCAINE/PF 1%, 30ML ONE (17:36)
[2020-09-24] MEDS ORDERED: BUPIVACAINE/PF 0.5% ONE (17:36)
[2020-09-24] MEDS ORDERED: EPINEPHRINE 1 MG/ML, 1ML ONE (17:36)
[2020-09-24 18:27] LABS: MEAN CORPUSCULAR HEMOGLOBIN 26.7 pg (27.0-34.8); MEAN CORPUSCULAR HGB CONC 33.6 g/dL (32.4-35.8); MEAN PLATELET VOLUME 8.2 fL (7.4-10.4); PLATELET COUNT 496 x10^3/uL (130-400); RED BLOOD COUNT 3.65 x10^6/uL (3.82-5.3); RED CELL DISTRIBUTION WIDTH 14.9 % (9.6-15.2)
[2020-09-24] MEDS ORDERED: KETOROLAC 30 MG/1 ML IV PRN (18:30)
[2020-09-24] MEDS ORDERED: ONDANSETRON 2MG/ML, 2ML IVPush PRN (18:30)
[2020-09-24] MEDS ORDERED: LABETALOL 5MG/ML, 20ML IV PRN (18:30)
[2020-09-24] MEDS ORDERED: OXYcodone 5 MG/5 ML ORAL.SOL UDC PO PRN (18:30)
[2020-09-24] MEDS ORDERED: MEPERIDINE/PF 25MG/0.5ML IVPush PRN (18:30)
[2020-09-24] MEDS ORDERED: ALBUTEROL SULFATE 2.5 MG/3 ML NPPB PRN (18:30)
[2020-09-24] MEDS ORDERED: FENTANYL PF 100 MCG/2ML IV PRN (18:30)
[2020-09-24] MEDS ORDERED: PROMETHAZINE 25 MG/ML, 1ML IV PRN (18:30)
[2020-09-24] MEDS ORDERED: DIAZEPAM 5 MG/ML, 2ML IV PRN ×2 (18:30)
[2020-09-24] MEDS ORDERED: hydrALAzine 20 MG/ML, 1ML IV PRN (18:30)
[2020-09-24 18:54] LABS: <PLATELET ESTIMATE> INCREASED; <PLT MORPHOLOGY> NORMAL PLT MORPH; LYMPH#(MANUAL) 1.63 x10^3/uL (1-3.4); LYMPHS% (MANUAL) 12 % (22-44); MONOS% (MANUAL) 11 % (2-9); SEG#(MANUAL) 10.47 x10^3/uL (1.8-6.8); SEGS% (MANUAL) 77 % (42-75)
[2020-09-24 18:55] LABS: ANISOCYTOSIS 1+; MICROCYTOSIS 1+
[2020-09-24 18:56] LABS: HYPOCHROMIA 1+; OVALOCYTES 1+
[2020-09-24] MEDS ORDERED: HYDROmorphone 1 MG/ML, 1ML INJ ONE (19:02)
[2020-09-24] MEDS: HYDROmorphone PCA 30 MG/30 ML IV PRN (19:38)
[2020-09-24] MEDS: MONTELUKAST 10 MG TABLET PO SCH (21:00)
[2020-09-24] MEDS: ENOXAPARIN 40 MG/0.4 ML SQ SCH (21:30)
[2020-09-24] MEDS: LIDODERM 5% PATCH TD SCH (22:00)
[2020-09-25 00:26] LABS: MEAN CORPUSCULAR HEMOGLOBIN 27.2 pg (27.0-34.8); MEAN CORPUSCULAR HGB CONC 33.6 g/dL (32.4-35.8); MEAN PLATELET VOLUME 7.9 fL (7.4-10.4); PLATELET COUNT 461 x10^3/uL (130-400); RED BLOOD COUNT 3.65 x10^6/uL (3.82-5.3); RED CELL DISTRIBUTION WIDTH 14.6 % (9.6-15.2)
[2020-09-25 00:38] LABS: ANION GAP 6 mmol/L (5-15); CALCIUM 8.2 mg/dL (8.5-10.1); CHLORIDE 98 mmol/L (98-107); CREATININE 1.28 mg/dL (0.55-1.02)
[2020-09-25] MEDS: PIPERACILLIN/TAZO 3.375 GM in DEXTROSE 5% 50 ML IV SCH ×5 (00:48→17:23)
[2020-09-25] MEDS: NS + 40MEQ KCL 1,000 ML IV SCH (00:51)
[2020-09-25 01:14] LABS: BAND#(MANUAL) 0.64 x10^3/uL; BANDS%(MANUAL) 3 % (0-7); LYMPH#(MANUAL) 0.64 x10^3/uL (1-3.4); LYMPHS% (MANUAL) 3 % (22-44); MONOS#(MANUAL) 2.12 x10^3/uL (0.3-2.7); MONOS% (MANUAL) 10 % (2-9); MYELOCYTES# (MANUAL) 0.21 x10^3/uL (0-0); MYELOCYTES% (MANUAL) 1 % (0-0); SEGS% (MANUAL) 83 % (42-75)
[2020-09-25 01:15] LABS: ANISOCYTOSIS 1+; MICROCYTOSIS 1+
[2020-09-25 01:16] LABS: OVALOCYTES 1+
[2020-09-25 01:17] LABS: <PLATELET ESTIMATE> INCREASED; <PLT MORPHOLOGY> NORMAL PLT MORPH
[2020-09-25] MEDS: CEFTAROLINE 600 MG in SODIUM CHLORIDE 0.9% 100 ML IV SCH ×3 (01:44→23:18)
[2020-09-25 05:50] LABS: MEAN CORPUSCULAR HEMOGLOBIN 27.1 pg (27.0-34.8); MEAN CORPUSCULAR HGB CONC 33.9 g/dL (32.4-35.8); MEAN PLATELET VOLUME 7.9 fL (7.4-10.4); PLATELET COUNT 454 x10^3/uL (130-400); RED BLOOD COUNT 3.51 x10^6/uL (3.82-5.3); RED CELL DISTRIBUTION WIDTH 14.4 % (9.6-15.2)
[2020-09-25 06:16] LABS: <PLATELET ESTIMATE> INCREASED; <PLT MORPHOLOGY> NORMAL PLT MORPH; ANISOCYTOSIS 1+; LYMPH#(MANUAL) 0.48 x10^3/uL (1-3.4); LYMPHS% (MANUAL) 3 % (22-44); MICROCYTOSIS 1+; MONOS#(MANUAL) 0.64 x10^3/uL (0.3-2.7); MONOS% (MANUAL) 4 % (2-9); OVALOCYTES 1+; SEG#(MANUAL) 14.97 x10^3/uL (1.8-6.8); SEGS% (MANUAL) 93 % (42-75)
[2020-09-25] MEDS: LACTATED RINGERS 1,000 ML IV SCH (06:53)
[2020-09-25] MEDS: SODIUM CHLORIDE 0.9% 1,000 ML IV SCH ×2 (07:44→21:37)
[2020-09-25] MEDS: SENNA/DOCUSATE TABLET PO SCH (08:55)
[2020-09-25] MEDS: DIVALPROEX 500 MG TAB.ER.24H PO SCH (08:55)
[2020-09-25] MEDS: TIZANIDINE 4MG TABLET PO SCH ×3 (08:55→21:38)
[2020-09-25] MEDS: PREGABALIN 100 MG CAPSULE PO SCH ×2 (08:55→21:38)
[2020-09-25] MEDS ORDERED: LIDODERM 5% PATCH TD ONE (16:00)
[2020-09-25 18:04] VITALS: BP 104/65
[2020-09-25 19:06] VITALS: BP 106/65
[2020-09-25] MEDS: LIDODERM REMOVE PATCH NOTE XX SCH (21:30)
[2020-09-25] MEDS: MONTELUKAST 10 MG TABLET PO SCH (21:38)
[2020-09-25] MEDS: ENOXAPARIN 40 MG/0.4 ML SQ SCH (21:39)
[2020-09-26] MEDS: PIPERACILLIN/TAZO 3.375 GM in DEXTROSE 5% 50 ML IV SCH ×2 (00:40→06:37)
[2020-09-26 01:04] VITALS: BP 100/64
[2020-09-26] MEDS: LORazepam 0.5MG TABLET PO PRN (04:41)
[2020-09-26 05:17] LABS: BASOPHILS % (AUTO) 0 % (0-1); EOSINOPHILS % (AUTO) 2 % (1-7); LYMPHOCYTES % (AUTO) 10 % (22-44); MEAN CORPUSCULAR HEMOGLOBIN 27.2 pg (27.0-34.8); MEAN CORPUSCULAR HGB CONC 33.7 g/dL (32.4-35.8); MEAN PLATELET VOLUME 7.6 fL (7.4-10.4); MONOCYTES % (AUTO) 13 % (2-9); NEUTROPHILS % (AUTO) 75 % (42-75); PLATELET COUNT 550 x10^3/uL (130-400); RED BLOOD COUNT 3.25 x10^6/uL (3.82-5.3); RED CELL DISTRIBUTION WIDTH 14.7 % (9.6-15.2)
[2020-09-26 05:31] LABS: ANION GAP 3 mmol/L (5-15); CALCIUM 8.4 mg/dL (8.5-10.1); CHLORIDE 93 mmol/L (98-107); CREATININE 1.11 mg/dL (0.55-1.02)
[2020-09-26 08:27] VITALS: BP 113/72
[2020-09-26] MEDS: SENNA/DOCUSATE TABLET PO SCH (09:00)
[2020-09-26] MEDS: PREGABALIN 100 MG CAPSULE PO SCH ×2 (09:49→21:36)
[2020-09-26] MEDS: ONDANSETRON 2MG/ML, 2ML IVPush PRN (09:49)
[2020-09-26] MEDS: DIVALPROEX 500 MG TAB.ER.24H PO SCH (09:49)
[2020-09-26] MEDS: TIZANIDINE 4MG TABLET PO SCH ×3 (09:50→21:36)
[2020-09-26] MEDS: POTASSIUM CHLORIDE 20 MEQ TAB.ER.PRT PO SCH ×2 (09:54→17:48)
[2020-09-26] MEDS: SODIUM CHLORIDE 0.9% 1,000 ML IV SCH ×2 (09:55→23:02)
[2020-09-26] MEDS: LIDODERM 5% PATCH TD SCH (09:57)
[2020-09-26] MEDS: CEFTAROLINE 600 MG in SODIUM CHLORIDE 0.9% 100 ML IV SCH ×2 (11:14→23:01)
[2020-09-26 18:59] VITALS: BP 116/70
[2020-09-26] MEDS: LIDODERM REMOVE PATCH NOTE XX SCH (21:30)
[2020-09-26] MEDS: ENOXAPARIN 40 MG/0.4 ML SQ SCH (21:36)
[2020-09-26] MEDS: MONTELUKAST 10 MG TABLET PO SCH (21:36)
[2020-09-27] VITALS (8 sets, daily range): BP systolic 106–131; BP diastolic 55–75
[2020-09-27] MEDS: HYDROmorphone PCA 30 MG/30 ML IV PRN (01:57)
[2020-09-27] MEDS: CYCLOBENZAPRINE 10 MG TABLET PO PRN (03:55)
[2020-09-27 04:58] LABS: BASOPHILS % (AUTO) 1 % (0-1); EOSINOPHILS % (AUTO) 3 % (1-7); LYMPHOCYTES % (AUTO) 14 % (22-44); MEAN CORPUSCULAR HEMOGLOBIN 27.6 pg (27.0-34.8); MEAN CORPUSCULAR HGB CONC 33.9 g/dL (32.4-35.8); MEAN PLATELET VOLUME 7.9 fL (7.4-10.4); MONOCYTES % (AUTO) 15 % (2-9); NEUTROPHILS % (AUTO) 68 % (42-75); PLATELET COUNT 493 x10^3/uL (130-400); RED BLOOD COUNT 2.63 x10^6/uL (3.82-5.3); RED CELL DISTRIBUTION WIDTH 15.1 % (9.6-15.2)
[2020-09-27 05:06] LABS: ALBUMIN 1.3 g/dL (3.4-5.0); ANION GAP 2 mmol/L (5-15); CALCIUM 8.3 mg/dL (8.5-10.1); CHLORIDE 99 mmol/L (98-107)
[2020-09-27 05:13] LABS: HCT (SEDRATE) 21.4 % (34.6-47.8)
[2020-09-27 05:17] LABS: ALANINE AMINOTRANSFERASE 14 U/L (12-78); ALKALINE PHOSPHATASE 50 U/L (45-117); BILIRUBIN,TOTAL 0.1 mg/dL (0.2-1.0); CREATININE 0.87 mg/dL (0.55-1.02); TOTAL PROTEIN 6.2 g/dL (6.4-8.2)
[2020-09-27] MEDS: SENNA/DOCUSATE TABLET PO SCH (08:28)
[2020-09-27] MEDS: DIVALPROEX 500 MG TAB.ER.24H PO SCH (08:29)
[2020-09-27] MEDS: POTASSIUM CHLORIDE 20 MEQ TAB.ER.PRT PO SCH ×2 (08:30→17:44)
[2020-09-27] MEDS: TIZANIDINE 4MG TABLET PO SCH ×2 (08:30→16:00)
[2020-09-27] MEDS: PREGABALIN 100 MG CAPSULE PO SCH ×2 (08:30→21:44)
[2020-09-27] MEDS: LIDODERM 5% PATCH TD SCH (08:30)
[2020-09-27] MEDS ORDERED: LIDOCAINE JELLY 2%, 30GM ONE (08:51)
[2020-09-27] MEDS ORDERED: SODIUM CHLORIDE 0.9% 250 ML IV ONE (13:00)
[2020-09-27] MEDS: OXYcodone/APAP 10/325MG TABLET PO PRN ×3 (13:17→21:45)
[2020-09-27] MEDS: CEFTAROLINE 600 MG in SODIUM CHLORIDE 0.9% 100 ML IV SCH (13:18)
[2020-09-27] MEDS: ONDANSETRON 2MG/ML, 2ML IVPush PRN (17:27)
[2020-09-27] MEDS: ENOXAPARIN 40 MG/0.4 ML SQ SCH (21:30)
[2020-09-27] MEDS: LIDODERM REMOVE PATCH NOTE XX SCH (21:30)
[2020-09-27] MEDS: MONTELUKAST 10 MG TABLET PO SCH (21:44)
[2020-09-28] MEDS: TIZANIDINE 4MG TABLET PO SCH ×4 (00:05→21:57)
[2020-09-28 01:02] VITALS: BP 133/81
[2020-09-28] MEDS: CEFTAROLINE 600 MG in SODIUM CHLORIDE 0.9% 100 ML IV SCH ×2 (01:10→12:39)
[2020-09-28] MEDS: OXYcodone/APAP 10/325MG TABLET PO PRN ×2 (02:01→06:01)
[2020-09-28] MEDS: CYCLOBENZAPRINE 10 MG TABLET PO PRN (04:24)
[2020-09-28 06:01] LABS: BASOPHILS % (AUTO) 1 % (0-1); EOSINOPHILS % (AUTO) 3 % (1-7); LYMPHOCYTES % (AUTO) 15 % (22-44); MEAN CORPUSCULAR HEMOGLOBIN 27.8 pg (27.0-34.8); MEAN PLATELET VOLUME 7.5 fL (7.4-10.4); MONOCYTES % (AUTO) 12 % (2-9); NEUTROPHILS % (AUTO) 68 % (42-75); PLATELET COUNT 532 x10^3/uL (130-400); RED BLOOD COUNT 3.12 x10^6/uL (3.82-5.3); RED CELL DISTRIBUTION WIDTH 14.9 % (9.6-15.2)
[2020-09-28 06:11] LABS: ANION GAP 2 mmol/L (5-15); CALCIUM 8.5 mg/dL (8.5-10.1); CHLORIDE 99 mmol/L (98-107); CREATININE 0.92 mg/dL (0.55-1.02)
[2020-09-28 06:37] VITALS: BP 120/78
[2020-09-28] MEDS: LORazepam 0.5MG TABLET PO PRN (08:16)
[2020-09-28] MEDS ORDERED: OXYcodone IR 5MG TABLET PO PRN (09:00)
[2020-09-28] MEDS: SENNA/DOCUSATE TABLET PO SCH (09:10)
[2020-09-28] MEDS: LIDODERM 5% PATCH TD SCH (09:17)
[2020-09-28] MEDS: PREGABALIN 100 MG CAPSULE PO SCH ×2 (09:19→21:58)
[2020-09-28] MEDS: DIVALPROEX 500 MG TAB.ER.24H PO SCH (09:19)
[2020-09-28] MEDS: HYDROmorphone 1 MG/ML, 1ML INJ IV PRN (11:38)
[2020-09-28 12:56] VITALS: BP 130/62
[2020-09-28] MEDS: OXYcodone IR 5MG TABLET PO PRN ×3 (13:18→21:58)
[2020-09-28 18:53] VITALS: BP 108/70
[2020-09-28] MEDS: MONTELUKAST 10 MG TABLET PO SCH (21:58)
[2020-09-28] MEDS: LIDODERM REMOVE PATCH NOTE XX SCH (21:58)
[2020-09-28] MEDS: ENOXAPARIN 40 MG/0.4 ML SQ SCH (21:59)
[2020-09-29] MEDS: CEFTAROLINE 600 MG in SODIUM CHLORIDE 0.9% 100 ML IV SCH ×2 (00:35→13:09)
[2020-09-29 01:19] VITALS: BP 121/72
[2020-09-29] MEDS: OXYcodone IR 5MG TABLET PO PRN ×4 (04:59→17:01)
[2020-09-29 06:32] VITALS: BP 129/78
[2020-09-29] MEDS: CYCLOBENZAPRINE 10 MG TABLET PO PRN (07:32)
[2020-09-29] MEDS: SENNA/DOCUSATE TABLET PO SCH (09:00)
[2020-09-29] MEDS: TIZANIDINE 4MG TABLET PO SCH ×2 (09:00→16:11)
[2020-09-29] MEDS: DIVALPROEX 500 MG TAB.ER.24H PO SCH (09:00)
[2020-09-29] MEDS: PREGABALIN 100 MG CAPSULE PO SCH (09:00)
[2020-09-29] MEDS: LIDODERM 5% PATCH TD SCH (09:07)
[2020-09-29] MEDS ORDERED: OXYC5TAB98 PO (11:42)
[2020-09-29 13:30] VITALS: BP 119/69
== END 2020-09-29 17:15 | disposition home or self-care (01) | DRG 853 ==
LOC: ED 17:30 → EDIP 19:23 → 4EST 20:12 → CCU 09-24 20:39 → 4NE 09-25 17:59
PROVIDERS: ADMIT Family Medicine; ATTEND Hospitalist
PROC: BD11ZZZ Fluoroscopy of Esophagus (ICD-10-PCS; 2020-09-19)
PROC: 0W9B30Z Drainage of Left Pleural Cavity with Drainage Device, Percutaneous Approach (ICD-10-PCS; 2020-09-19)
PROC: 02HV33Z Insertion of Infusion Device into Superior Vena Cava, Percutaneous Approach (ICD-10-PCS; 2020-09-20)
PROC: B5181ZA Fluoroscopy of Superior Vena Cava using Low Osmolar Contrast, Guidance (ICD-10-PCS; 2020-09-20)
PROC: B548ZZA Ultrasonography of Superior Vena Cava, Guidance (ICD-10-PCS; 2020-09-20)
PROC: 30233N1 Transfusion of Nonautologous Red Blood Cells into Peripheral Vein, Percutaneous Approach (ICD-10-PCS; 2020-09-24)
PROC: 0BNL4ZZ Release Left Lung, Percutaneous Endoscopic Approach (ICD-10-PCS; principal; 2020-09-24 17:30)
DX: A41.9 Sepsis, unspecified organism (principal); Q79.0 Congenital diaphragmatic hernia; Q24.4 Congenital subaortic stenosis; N17.0 Acute kidney failure with tubular necrosis; J96.01 Acute respiratory failure with hypoxia; J15.212 Pneumonia due to Methicillin resistant Staphylococcus aureus; I82.0 Budd-Chiari syndrome; J86.0 Pyothorax with fistula; D62 Acute posthemorrhagic anemia; Q24.0 Dextrocardia; Q87.2 Congenital malformation syndromes predominantly involving limbs; E87.1 Hypo-osmolality and hyponatremia; F11.20 Opioid dependence, uncomplicated; K56.609 Unspecified intestinal obstruction, unspecified as to partial versus complete obstruction; D63.8 Anemia in other chronic diseases classified elsewhere; E11.65 Type 2 diabetes mellitus with hyperglycemia; T36.8X5A Adverse effect of other systemic antibiotics, initial encounter; J42 Unspecified chronic bronchitis; E86.1 Hypovolemia; E87.6 Hypokalemia; E88.09 Other disorders of plasma-protein metabolism, not elsewhere classified; G40.909 Epilepsy, unspecified, not intractable, without status epilepticus; G89.29 Other chronic pain; F12.90 Cannabis use, unspecified, uncomplicated; H70.92 Unspecified mastoiditis, left ear; I10 Essential (primary) hypertension; I35.0 Nonrheumatic aortic (valve) stenosis; J45.909 Unspecified asthma, uncomplicated; L98.8 Other specified disorders of the skin and subcutaneous tissue; Z90.49 Acquired absence of other specified parts of digestive tract; Z98.1 Arthrodesis status; Z86.16 Personal history of COVID-19; Z83.3 Family history of diabetes mellitus; Z82.5 Family history of asthma and other chronic lower respiratory diseases; Z82.49 Family history of ischemic heart disease and other diseases of the circulatory system; Z95.2 Presence of prosthetic heart valve; Q07.00 Arnold-Chiari syndrome without spina bifida or hydrocephalus; Y92.89 Other specified places as the place of occurrence of the external cause; Z88.1 Allergy status to other antibiotic agents; Z88.8 Allergy status to other drugs, medicaments and biological substances
CPT/HCPCS: 32557; 36415; 74230; 84145; 96365; 96375; 96376; 99285; J3490; J7639; S0020; 36573; 71045; 71250; 71260; 80048; 80053; 80164; 80202; 81001; 82728; 83036; 83540; 83550; 83605; 83735; 84100; 84484; 84703; 85018; 85025; 85610; 85651; 85730; 86140; 86850; 86900; 86923; 87040; 87070; 87075; 87081; 87102; 87116; 87147; 87176; 87186; 87205; 87206; 87635; 88305; 93005; 99156; 99157; C1729; G0378; J0171; J0690; J0712; J1100; J1170; J1650; J2250; J2405; J2543; J2704; J2997; J3010; J3370; J3480; Q9967; C1751; C1769; J0330; J2060; J2270; J2310; J7030; J7050; J7120; P9016